=== PATIENT | male | born 1955 | race Two or more races ===

== ENCOUNTER 2024-07-15 15:03 | Emergency (ER) | payer OTHER, BC ==
[~2024-07-15] VITALS: Ht 180.3 cm; Wt 95.7 kg
[2024-07-15] MEDS ORDERED: ACETAMINOPHEN ES 500 MG TABLET ONE (16:59)
[2024-07-15] MEDS: ACETAMINOPHEN ES 500 MG TABLET PO ONE (17:02)
[2024-07-15 18:11] VITALS: BP 115/80; TEMP 98.4; O2SAT 98
== END 2024-07-15 18:12 | disposition home or self-care (01) ==
LOC: ER 15:10
DX: S13.4XXA Sprain of ligaments of cervical spine, initial encounter (principal); S09.8XXA Other specified injuries of head, initial encounter; E11.9 Type 2 diabetes mellitus without complications; I48.91 Unspecified atrial fibrillation; V43.52XA Car driver injured in collision with other type car in traffic accident, initial encounter; Y93.89 Activity, other specified; Y92.89 Other specified places as the place of occurrence of the external cause; Y99.8 Other external cause status
CPT/HCPCS: 70450-TC; 72125-TC